=== PATIENT | female | born 1950 | race Caucasian/White ===

== ENCOUNTER 2016-11-04 08:12 | Emergency (ER) | payer OTHER, MEDICAID ==
[~2016-11-04] VITALS: Ht 172.7 cm; Wt 90.7 kg
[~2016-11-04 08:12] MED LIST: LISI-646 PO; QUET50TA PO; [UNRECOGNIZED DRUG - REMARK]
[2016-11-04 10:30] VITALS: BP 92/35
[2016-11-04] MEDS ORDERED: HYDROmorphone HCL 2 MG/ML VL IV ONE (10:45)
[2016-11-04] MEDS ORDERED: ONDANSETRON HCL 4 MG/2 ML VIAL IV ONE (10:45)
[2016-11-04 10:53] LABS: Basophils # (auto) 0 uL; Basophils % (auto) 0.2 % (0.0-2.0); Eosinophils # (auto) 0.2 uL; Eosinophils % (auto) 1.8 % (0.0-7.0); Hematocrit 35.3 % (36.0-46.0); Hemoglobin 11.9 g/dL (12.2-16.2); Lymphocytes # (auto) 2.4 uL; Lymphocytes % (auto) 25.8 % (10.0-50.0); Mean Corpuscular Hemoglobin 29.7 pg (28.0-32.0); Mean Corpuscular Hgb Conc. 33.7 g/dL (32.0-36.0); Mean Corpuscular Volume 88.3 fL (80.0-100.0); Mean Platelet Volume 8.2 fL (7.4-10.4); Monocytes # (auto) 0.6 uL; Monocytes % (auto) 6.7 % (0.0-12.0); Neutrophils # (auto) 6.1 uL; Neutrophils % (auto) 65.5 % (37.0-80.0); Platelet Count (auto) 401 10^3/uL (140-450); Red Cell Distribution Width 14.4 % (11.6-16.0); White Blood Cell 9.4 10^3/uL (4.4-10.8)
[2016-11-04 11:51] LABS: Albumin 3.6 g/dL (3.4-5.0); BUN/Creatinine Ratio 19.5; Bilirubin, Total 0.3 mg/dL (0.2-1.0); Calcium 9.3 mg/dL (8.5-10.1); Potassium 4.4 mmol/L (3.5-5.1)
== END 2016-11-04 12:16 | disposition home or self-care (01) ==
LOC: ER 08:12
DX: S40.012A Contusion of left shoulder, initial encounter (principal); S60.212A Contusion of left wrist, initial encounter; M19.90 Unspecified osteoarthritis, unspecified site; J44.9 Chronic obstructive pulmonary disease, unspecified; Z85.828 Personal history of other malignant neoplasm of skin; Z98.51 Tubal ligation status; Z90.89 Acquired absence of other organs; Z88.6 Allergy status to analgesic agent; Z88.2 Allergy status to sulfonamides
CPT/HCPCS: 36415; 73030; 73110; 73502; 80053; 85025; 96374; 96375; 99285; J1170; J2405

== ENCOUNTER 2018-02-10 09:04 | Inpatient (IN) | payer OTHER, MEDICAID ==
[~2018-02-10] VITALS: Ht 172.7 cm; Wt 103.9 kg
[~2018-02-10 09:04] MED LIST changes: +HYDR-4072 PO
[2018-02-10] MEDS ORDERED: SODIUM CHLORIDE 0.9% 1,000 ML IV ONE (09:38)
[2018-02-10] MEDS ORDERED: LORazepam 2MG/ML-1ML VIAL IV ONE ×2 (09:45→10:45)
[2018-02-10 09:56] LABS: Basophils # (auto) 0 uL; Basophils % (auto) 0.4 % (0.0-2.0); Eosinophils # (auto) 0 uL; Eosinophils % (auto) 0.5 % (0.0-7.0); Hemoglobin 14.1 g/dL (12.2-16.2); Lymphocytes # (auto) 1.8 uL; Lymphocytes % (auto) 18.6 % (10.0-50.0); Mean Corpuscular Hgb Conc. 33.7 g/dL (32.0-36.0); Mean Corpuscular Volume 89.1 fL (80.0-100.0); Monocytes # (auto) 0.8 uL; Monocytes % (auto) 7.9 % (0.0-12.0); Neutrophils % (auto) 72.6 % (37.0-80.0); Platelet Count (auto) 354 10^3/uL (140-450); Red Blood Cells 4.71 10^6/uL (4.0-5.20); Red Cell Distribution Width 13.9 % (11.8-14.3); White Blood Cell 9.6 10^3/uL (4.4-10.8)
[2018-02-10 10:09] LABS: INR 0.99 (0.9-1.15); Partial Thromboplastin Time 26.8 sec (23.78-33.04); Prothrombin Time 10.6 sec (9.27-12.13)
[2018-02-10 10:15] LABS: Albumin 3.8 g/dL (3.4-5.0); Anion Gap 11 (5-15); Blood Alcohol < 3.0 mg/dL (0-5); Blood Urea Nitrogen 14 mg/dL (7-18); Calcium 9.3 mg/dL (8.5-10.1); Carbon Dioxide 22 mmol/L (21-32); Chloride 106 mmol/L (98-107); Glucose 96 mg/dL (74-106); Potassium 3.7 mmol/L (3.5-5.1); Sodium 139 mmol/L (136-145)
[2018-02-10 10:17] LABS: Alanine Aminotransferase 20 U/L (13-56); Aspartate Aminotransferase 12 U/L (15-37); BUN/Creatinine Ratio 17.9; GFR African American 95 mL/min; GFR Non-African American 79 mL/min
[2018-02-10 10:18] LABS: Urine Bacteria NONE SEEN /hpf (None Seen); Urine Blood Negative /uL (Negative); Urine Mucus FEW (None Seen); Urine WBC 1 /hpf (0 - 5)
[2018-02-10 10:19] LABS: Alcohol, Urine < 3.0 mg/dL (0-5); Amphetamine Screen, Urine NEGATIVE (NEGATIVE); Barbiturate Scree,Urine NEGATIVE (NEGATIVE); Benzodiazephine Screen, Urine NEGATIVE (NEGATIVE); Cannabinoid Screen, Urine POSITIVE (NEGATIVE); Cocaine Screen, Urine NEGATIVE (NEGATIVE); Opiate Scree,Urine NEGATIVE (NEGATIVE); Phencyclidine Screen, Urine NEGATIVE (NEGATIVE)
[2018-02-10 10:22] LABS: Alkaline Phosphatase 101 U/L (45-117); Bilirubin, Total 0.5 mg/dL (0.2-1.0); Total Protein 7.5 g/dL (6.4-8.2)
[2018-02-10] MEDS ORDERED: HALOPERIDOL LACTATE 5 MG/ML INJ VIAL IM ONE (11:30)
[2018-02-10] MEDS ORDERED: hydrOXYzine HCL 25 MG/ML VL IM ONE (12:00)
[2018-02-10] MEDS ORDERED: KETOROLAC TROMETH 30 MG/ML 1ML VIAL IV PRN (13:30)
[2018-02-10] MEDS ORDERED: TEMAZEPAM 15 MG CAP PO PRN (13:30)
[2018-02-10] MEDS ORDERED: NITROGLYCERIN 0.4 MG SL TAB SL PRN (13:30)
[2018-02-10] MEDS ORDERED: LABETALOL HCL 5 MG/ML ML 20ML VIAL IV PRN (13:30)
[2018-02-10] MEDS ORDERED: LORazepam 0.5 MG TAB PO PRN (13:30)
[2018-02-10] MEDS ORDERED: HYDROcodone-ACET 5/325MG TAB PO PRN (13:30)
[2018-02-10] MEDS ORDERED: LACTULOSE 20Gm/30ML SOLN PO PRN ×2 (13:30)
[2018-02-10] MEDS ORDERED: MORPHINE SULF INJ 2 MG/ML SYRINGE 1ML IV PRN (13:30)
[2018-02-10] MEDS ORDERED: ALBUTEROL SULF 2.5 MG/0.5ML(0.5%) NEB SOLN NEB PRN (13:30)
[2018-02-10] MEDS ORDERED: PROMETHAZINE HCL 25 MG/ML 1ML IV PRN (13:30)
[2018-02-10] MEDS ORDERED: ACETAMINOPHEN 500 MG TAB PO PRN (13:30)
[2018-02-10] MEDS: SODIUM CHLORIDE 0.9% 1,000 ML IV SCH (13:59)
[2018-02-10] MEDS: ENOXAPARIN SOD 40 MG/0.4 ML SYRINGE SC SCH (14:09)
[2018-02-10] MEDS: ASPirin 81 mg TAB PO SCH (14:09)
[2018-02-10 14:12] LABS: Folate (Folic Acid) > 24.00 ng/mL (5.38-24)
[2018-02-10] MEDS ORDERED: LISINOPRIL 20 MG PO SCH (17:00)
[2018-02-10] MEDS ORDERED: CYANOCOBALAMIN (B-12) 1000 MCG/1 ML VIAL IM ONE (18:15)
[2018-02-10] MEDS ORDERED: HALOPERIDOL LACTATE 5 MG/ML INJ VIAL IV PRN (18:15)
[2018-02-10 19:56] VITALS: BP 126/76
[2018-02-10 22:00] VITALS: BP 129/77
[2018-02-10] MEDS ORDERED: QUEtiapine FUMARATE 100 MG TAB PO SCH (22:00)
[2018-02-10] MEDS ORDERED: ATORVASTATIN 20 MG TAB PO SCH (22:00)
[2018-02-10] MEDS ORDERED: PATIENTS OWN MEDICATION (Quetiapine Fumerate (Seroquel) 100 MG) PO SCH (22:00)
[2018-02-11 05:00] VITALS: BP 125/69
[2018-02-11] MEDS: SODIUM CHLORIDE 0.9% 1,000 ML IV SCH (05:26)
[2018-02-11 05:44] LABS: Cholesterol 199 mg/dL (< 200); HDL Cholesterol 64 mg/dL (40-59); LDL Cholesterol 131 mg/dL (< 100); Triglycerides 99 mg/dL (< 150)
[2018-02-11 08:00] VITALS: BP 109/80
[2018-02-11 09:27] VITALS: BP 109/80
[2018-02-11] MEDS: ASPirin 81 mg TAB PO SCH (09:57)
[2018-02-11] MEDS ORDERED: ENOXAPARIN SOD 40 MG/0.4 ML SYRINGE SC SCH (10:00)
[2018-02-11] MEDS: ENOXAPARIN SOD 40 MG/0.4 ML SYRINGE SC SCH (10:00)
[2018-02-11] MEDS ORDERED: LISINOPRIL 20 MG TAB PO SCH (10:00)
[2018-02-11] MEDS ORDERED: PANTOPRAZOLE 40 MG TAB PO SCH (10:00)
[2018-02-11] MEDS ORDERED: CYANOCOBALAMIN 500 MCG TAB PO SCH (10:00)
== END 2018-02-11 13:30 | disposition home or self-care (01) | DRG 72 ==
LOC: EDUNIT# 09:04 → ER 09:04 → EDBD 09:04 → TELE 09:05 → TELE-WESTW 19:17
PROVIDERS: ADMIT Internal Medicine; ATTEND Internal Medicine
DX: G93.41 Metabolic encephalopathy (principal); F17.200 Nicotine dependence, unspecified, uncomplicated; F32.9 Major depressive disorder, single episode, unspecified; F41.9 Anxiety disorder, unspecified; G47.10 Hypersomnia, unspecified; J44.9 Chronic obstructive pulmonary disease, unspecified; Z96.642 Presence of left artificial hip joint; M19.90 Unspecified osteoarthritis, unspecified site; M85.80 Other specified disorders of bone density and structure, unspecified site; R29.6 Repeated falls; Z80.52 Family history of malignant neoplasm of bladder; Z82.49 Family history of ischemic heart disease and other diseases of the circulatory system; Z90.710 Acquired absence of both cervix and uterus; Z87.81 Personal history of (healed) traumatic fracture; Z98.51 Tubal ligation status; Z88.5 Allergy status to narcotic agent; Z88.2 Allergy status to sulfonamides; Z88.8 Allergy status to other drugs, medicaments and biological substances; Z79.899 Other long term (current) drug therapy; Z90.49 Acquired absence of other specified parts of digestive tract; S32.19XD Other fracture of sacrum, subsequent encounter for fracture with routine healing
CPT/HCPCS: 36415; 70450; 71045; 72192; 80053; 80061; 80307; 80320; 81001; 82550; 82607; 82746; 84443; 84484; 85025; 85610; 85730; 94640; 96361; 96372; 96374; 96376; A6257

== ENCOUNTER 2018-08-26 17:50 | Emergency (ER) | payer OTHER, MEDICAID ==
[~2018-08-26] VITALS: Ht 170.2 cm; Wt 104.3 kg
[2018-08-26 19:19] LABS: Basophils # (auto) 0.1 uL; Basophils % (auto) 0.4 % (0.0-2.0); Eosinophils # (auto) 0 uL; Eosinophils % (auto) 0.1 % (0.0-7.0); Hematocrit 37.6 % (36.0-46.0); Hemoglobin 12.5 g/dL (12.2-16.2); Lymphocytes # (auto) 1.9 uL; Lymphocytes % (auto) 16.2 % (10.0-50.0); Mean Corpuscular Hemoglobin 30.6 pg (28.0-32.0); Mean Corpuscular Hgb Conc. 33.1 g/dL (32.0-36.0); Mean Corpuscular Volume 92.4 fL (80.0-100.0); Monocytes # (auto) 0.8 uL; Monocytes % (auto) 6.6 % (0.0-12.0); Neutrophils # (auto) 9.1 uL; Neutrophils % (auto) 76.7 % (37.0-80.0); Platelet Count (auto) 367 10^3/uL (140-450); Red Blood Cells 4.07 10^6/uL (4.0-5.20); Red Cell Distribution Width 13.8 % (11.8-14.3); White Blood Cell 11.9 10^3/uL (4.4-10.8)
[2018-08-26 19:24] LABS: Albumin 4.1 g/dL (3.4-5.0); Calcium 9.5 mg/dL (8.5-10.1); Potassium 3.7 mmol/L (3.5-5.1)
[2018-08-26 19:29] LABS: BUN/Creatinine Ratio 20.7; Bilirubin, Total 0.5 mg/dL (0.2-1.0); Total Protein 7.7 g/dL (6.4-8.2)
[2018-08-26 19:35] LABS: Blood Alcohol < 3.0 mg/dL (0-5)
[2018-08-26 19:36] LABS: Salicylate < 1.7 mg/dL (2.8-20.0)
[2018-08-26 19:43] LABS: Acetaminophen < 2.0 ug/mL (10-30)
[2018-08-26] MEDS ORDERED: cefTRIAXone SOD 1,000 MG VL IM ONE (19:45)
[2018-08-26 20:44] LABS: Urine Bacteria FEW /hpf (None Seen); Urine Blood 2+ /uL (Negative); Urine Specific Gravity 1.025 (1.001-1.035); Urine WBC 33 /hpf (0 - 5)
[2018-08-26 20:54] LABS: Alcohol, Urine < 3.0 mg/dL (0-5); Amphetamine Screen, Urine NEGATIVE (NEGATIVE); Barbiturate Scree,Urine NEGATIVE (NEGATIVE); Benzodiazephine Screen, Urine NEGATIVE (NEGATIVE); Cannabinoid Screen, Urine NEGATIVE (NEGATIVE); Cocaine Screen, Urine NEGATIVE (NEGATIVE); Opiate Scree,Urine NEGATIVE (NEGATIVE); Phencyclidine Screen, Urine NEGATIVE (NEGATIVE)
[2018-08-26] MEDS ORDERED: LIDOCAINE 1% HCL (LOCAL ANESTH.) INJ 20ML MDV ONE (21:35)
[2018-08-27] MEDS ORDERED: OLANZapine 5 MG TAB ONE (01:52)
[2018-08-27] MEDS ORDERED: LORazepam 0.5 MG TAB PO ONE (02:00)
[2018-08-27] MEDS ORDERED: OLANZapine 5 MG TAB PO SCH (10:00)
[2018-08-27 11:51] VITALS: BP 131/80
== END 2018-08-27 12:03 | disposition short-term general hospital (02) ==
LOC: EDBD 17:50 → ER 18:01
DX: F32.9 Major depressive disorder, single episode, unspecified (principal); N39.0 Urinary tract infection, site not specified; F41.9 Anxiety disorder, unspecified; M19.90 Unspecified osteoarthritis, unspecified site; J44.9 Chronic obstructive pulmonary disease, unspecified; Z90.49 Acquired absence of other specified parts of digestive tract; Z98.51 Tubal ligation status
CPT/HCPCS: 36415; 80053; 80307; 80320; 80329; 81001; 84484; 85025; 96372; 99285; J0696; J2001

== ENCOUNTER 2018-09-09 11:20 | Inpatient (IN) | payer OTHER, MEDICAID ==
[~2018-09-09] VITALS: Ht 167.6 cm; Wt 108.7 kg
[2018-09-09] MEDS ORDERED: LORazepam 2MG/ML-1ML VIAL IV ONE (11:45)
[2018-09-09 11:47] LABS: Basophils # (auto) 0.1 uL; Basophils % (auto) 0.9 % (0.0-2.0); Eosinophils # (auto) 0.1 uL; Eosinophils % (auto) 0.9 % (0.0-7.0); Hematocrit 37.4 % (36.0-46.0); Hemoglobin 12.2 g/dL (12.2-16.2); Lymphocytes # (auto) 1.5 uL; Lymphocytes % (auto) 11.2 % (10.0-50.0); Mean Corpuscular Hemoglobin 30.4 pg (28.0-32.0); Mean Corpuscular Hgb Conc. 32.8 g/dL (32.0-36.0); Mean Corpuscular Volume 92.8 fL (80.0-100.0); Monocytes # (auto) 0.4 uL; Monocytes % (auto) 2.9 % (0.0-12.0); Neutrophils # (auto) 11.6 uL; Neutrophils % (auto) 84.1 % (37.0-80.0); Platelet Count (auto) 392 10^3/uL (140-450); Red Blood Cells 4.03 10^6/uL (4.0-5.20); Red Cell Distribution Width 13.6 % (11.8-14.3); White Blood Cell 13.7 10^3/uL (4.4-10.8)
[2018-09-09 12:00] LABS: Albumin 3.8 g/dL (3.4-5.0); Anion Gap 6 (5-15); BUN/Creatinine Ratio 18.2; Blood Alcohol < 3.0 mg/dL (0-5); Blood Urea Nitrogen 16 mg/dL (7-18); Calcium 9.5 mg/dL (8.5-10.1); Carbon Dioxide 26 mmol/L (21-32); Chloride 110 mmol/L (98-107); GFR African American 83 mL/min; GFR Non-African American 68 mL/min; Glucose 90 mg/dL (74-106); Sodium 142 mmol/L (136-145)
[2018-09-09 12:03] LABS: Alanine Aminotransferase 19 U/L (13-56); Alkaline Phosphatase 89 U/L (45-117); Aspartate Aminotransferase 23 U/L (15-37); Bilirubin, Total 0.4 mg/dL (0.2-1.0); Total Protein 7.5 g/dL (6.4-8.2)
[2018-09-09] MEDS ORDERED: ALBUTEROL SULF 2.5 MG/0.5ML(0.5%) NEB SOLN NEB ONE ×2 (12:30→19:00)
[2018-09-09] MEDS ORDERED: IPRATROPIUM BROM 0.5 MG/2.5ML INH SOL NEB ONE ×2 (12:30→19:00)
[2018-09-09 13:07] LABS: Urine Bacteria NONE SEEN /hpf (None Seen); Urine Blood Negative /uL (Negative); Urine Specific Gravity 1.011 (1.001-1.035); Urine WBC 2 /hpf (0 - 5)
[2018-09-09 13:20] LABS: Alcohol, Urine < 3.0 mg/dL (0-5); Amphetamine Screen, Urine NEGATIVE (NEGATIVE); Barbiturate Scree,Urine NEGATIVE (NEGATIVE); Benzodiazephine Screen, Urine NEGATIVE (NEGATIVE); Cannabinoid Screen, Urine NEGATIVE (NEGATIVE); Cocaine Screen, Urine NEGATIVE (NEGATIVE); Opiate Scree,Urine NEGATIVE (NEGATIVE); Phencyclidine Screen, Urine NEGATIVE (NEGATIVE)
[2018-09-09] MEDS ORDERED: LORazepam 0.5 MG TAB PO ONE (13:30)
[2018-09-09] MEDS ORDERED: cefTRIAXone 1GM/50ML D5W 50 ML IV ONE (14:00)
[2018-09-09] MEDS ORDERED: IBUPROFEN 800 MG TAB PO ONE (15:15)
[2018-09-09] MEDS ORDERED: diphenhdrAMINE HCL 50 MG/1 ML VL IV ONE (19:00)
[2018-09-09] MEDS ORDERED: ACETAMINOPHEN 325 MG TAB PO PRN (19:00)
[2018-09-09] MEDS ORDERED: ONDANSETRON HCL 4 MG/2 ML VIAL IV PRN (19:00)
[2018-09-09] MEDS ORDERED: diphenhdrAMINE HCL 50 MG/1 ML VL IV PRN (19:00)
[2018-09-09] MEDS ORDERED: LORA-655 PO (19:01)
[2018-09-09] MEDS ORDERED: TRAM50TA2 PO (19:01)
[2018-09-09] MEDS ORDERED: GABA300C10 PO (19:01)
[2018-09-09] MEDS: DOXYCYCLINE 100MG/250ML 250 ML IV SCH (20:00)
[2018-09-09 21:16] VITALS: BP 155/75
[2018-09-09] MEDS ORDERED: QUEtiapine FUMARATE 100 MG TAB PO SCH (22:00)
[2018-09-09] MEDS: GABAPENTIN 400 MG CAP PO SCH (22:00)
[2018-09-09] MEDS: ALBUTEROL SULF 2.5 MG/0.5ML(0.5%) NEB SOLN NEB SCH (22:00)
[2018-09-09] MEDS: IPRATROPIUM BROM 0.5 MG/2.5ML INH SOL NEB SCH (22:00)
[2018-09-10] VITALS (7 sets, daily range): BP systolic 105–149; BP diastolic 52–84
[2018-09-10] MEDS: LORazepam 2MG/ML-1ML VIAL IV PRN ×2 (01:49→13:36)
[2018-09-10] MEDS: GABAPENTIN 400 MG CAP PO SCH ×3 (05:14→22:14)
[2018-09-10] MEDS: guaiFENesin 200 MG/10 ML UD PO PRN (05:14)
[2018-09-10 06:48] LABS: Basophils # (auto) 0 uL; Basophils % (auto) 0.4 % (0.0-2.0); Eosinophils # (auto) 0.2 uL; Eosinophils % (auto) 1.8 % (0.0-7.0); Hematocrit 33.8 % (36.0-46.0); Hemoglobin 11.4 g/dL (12.2-16.2); Lymphocytes # (auto) 1.6 uL; Lymphocytes % (auto) 15.3 % (10.0-50.0); Mean Corpuscular Hemoglobin 30.9 pg (28.0-32.0); Mean Corpuscular Hgb Conc. 33.7 g/dL (32.0-36.0); Mean Corpuscular Volume 91.8 fL (80.0-100.0); Monocytes # (auto) 0.6 uL; Monocytes % (auto) 5.5 % (0.0-12.0); Neutrophils # (auto) 8.2 uL; Nucleated Red Blood Cells % 0.1 %; Platelet Count (auto) 349 10^3/uL (140-450); Red Blood Cells 3.68 10^6/uL (4.0-5.20); Red Cell Distribution Width 13.8 % (11.8-14.3); White Blood Cell 10.6 10^3/uL (4.4-10.8)
[2018-09-10] MEDS: DOXYCYCLINE 100MG/250ML 250 ML IV SCH ×2 (06:58→18:02)
[2018-09-10] MEDS: PANTOPRAZOLE 40 MG TAB PO SCH (06:58)
[2018-09-10] MEDS: IPRATROPIUM BROM 0.5 MG/2.5ML INH SOL NEB SCH ×5 (07:25→22:08)
[2018-09-10] MEDS: ALBUTEROL SULF 2.5 MG/0.5ML(0.5%) NEB SOLN NEB SCH ×5 (07:25→22:08)
[2018-09-10] MEDS: LISINOPRIL 10 MG TAB PO SCH (10:51)
[2018-09-10] MEDS: OLANZapine 5 MG TAB PO SCH (18:02)
[2018-09-10] MEDS: QUEtiapine FUMARATE 100 MG TAB PO SCH (22:14)
[2018-09-11 04:23] VITALS: BP 138/75
[2018-09-11] MEDS: DOXYCYCLINE 100MG/250ML 250 ML IV SCH ×2 (05:36→17:31)
[2018-09-11] MEDS: GABAPENTIN 400 MG CAP PO SCH ×3 (05:36→21:03)
[2018-09-11] MEDS: OLANZapine 5 MG TAB PO SCH ×4 (05:36→17:27)
[2018-09-11] MEDS: PANTOPRAZOLE 40 MG TAB PO SCH (05:38)
[2018-09-11] MEDS: IPRATROPIUM BROM 0.5 MG/2.5ML INH SOL NEB SCH ×5 (06:07→22:15)
[2018-09-11] MEDS: ALBUTEROL SULF 2.5 MG/0.5ML(0.5%) NEB SOLN NEB SCH ×5 (06:07→22:15)
[2018-09-11 09:00] VITALS: BP 106/62
[2018-09-11] MEDS: LISINOPRIL 10 MG TAB PO SCH (09:23)
[2018-09-11] MEDS: guaiFENesin 200 MG/10 ML UD PO PRN ×3 (09:26→21:03)
[2018-09-11 13:00] VITALS: BP 121/50
[2018-09-11 17:00] VITALS: BP 106/63
[2018-09-11] MEDS: QUEtiapine FUMARATE 100 MG TAB PO SCH (21:03)
[2018-09-11 21:41] VITALS: BP 103/58
[2018-09-11] MEDS: traMADol HCL 50 MG TAB PO PRN (22:07)
[2018-09-12] VITALS (8 sets, daily range): BP systolic 84–131; BP diastolic 52–85
[2018-09-12] MEDS: DOXYCYCLINE 100MG/250ML 250 ML IV SCH ×2 (05:43→17:35)
[2018-09-12] MEDS: ALBUTEROL SULF 2.5 MG/0.5ML(0.5%) NEB SOLN NEB SCH ×5 (06:17→22:04)
[2018-09-12] MEDS: IPRATROPIUM BROM 0.5 MG/2.5ML INH SOL NEB SCH ×5 (06:18→22:04)
[2018-09-12] MEDS: PANTOPRAZOLE 40 MG TAB PO SCH (06:34)
[2018-09-12] MEDS: OLANZapine 5 MG TAB PO SCH ×4 (06:34→17:35)
[2018-09-12] MEDS: GABAPENTIN 400 MG CAP PO SCH ×3 (06:35→20:48)
[2018-09-12] MEDS: LISINOPRIL 10 MG TAB PO SCH (10:00)
[2018-09-12] MEDS: traMADol HCL 50 MG TAB PO PRN (15:33)
[2018-09-12] MEDS: QUEtiapine FUMARATE 100 MG TAB PO SCH (20:48)
[2018-09-12] MEDS: guaiFENesin 200 MG/10 ML UD PO PRN (21:43)
== END 2018-09-12 22:15 | DRG 871 ==
LOC: ER 11:20 → EDUNIT# 11:20 → EDBD 11:20 → OVERFLOW 19:03 → CENTRAL 23:37
PROVIDERS: ADMIT Nurse Practitioner Family; ATTEND Internal Medicine
DX: A41.9 Sepsis, unspecified organism (principal); G93.41 Metabolic encephalopathy; F23 Brief psychotic disorder; F31.5 Bipolar disorder, current episode depressed, severe, with psychotic features; F31.9 Bipolar disorder, unspecified; J20.9 Acute bronchitis, unspecified; F41.9 Anxiety disorder, unspecified; M19.90 Unspecified osteoarthritis, unspecified site; I10 Essential (primary) hypertension; Z88.5 Allergy status to narcotic agent; Z88.2 Allergy status to sulfonamides; Z80.52 Family history of malignant neoplasm of bladder; Z87.891 Personal history of nicotine dependence; Z90.49 Acquired absence of other specified parts of digestive tract
CPT/HCPCS: 36415; 70450; 71045; 80053; 80307; 80320; 81001; 83880; 85025; 87040; 87070; 87077; 87081; 87186; 87205; 94640; 96365; 96367; 96375; G0378; J0696; J3490